=== PATIENT | female | born 1995 ===

== ENCOUNTER → 2020-11-26 | Outpatient (CLI) | payer OTHER | END | disposition home or self-care (01) | LOC: PRENATAL 09:00 | PROVIDERS: ATTEND Obstetrics & Gynecology Maternal & Fetal Medicine | DX: Z36.89 Encounter for other specified antenatal screening (principal); O36.80X1 Pregnancy with inconclusive fetal viability, fetus 1; Z3A.12 12 weeks gestation of pregnancy ==

== ENCOUNTER 2021-01-08 15:43 | Emergency (ER) | payer OTHER ==
[~2021-01-08] VITALS: Ht 154.9 cm; Wt 61.2 kg
== END 2021-01-08 21:31 | disposition home or self-care (01) ==
LOC: ER 15:43
DX: O26.892 Other specified pregnancy related conditions, second trimester (principal); S13.8XXA Sprain of joints and ligaments of other parts of neck, initial encounter; S30.0XXA Contusion of lower back and pelvis, initial encounter; S80.11XA Contusion of right lower leg, initial encounter; V49.88XA Car occupant (driver) (passenger) injured in other specified transport accidents, initial encounter; Y93.89 Activity, other specified; Y92.488 Other paved roadways as the place of occurrence of the external cause; Y99.8 Other external cause status